=== PATIENT | female | born 1950 | race Caucasian/White ===

== ENCOUNTER 2020-07-02 11:51 | Emergency (ER) | payer MEDICARE, MEDICAID ==
[~2020-07-02] VITALS: Ht 160 cm; Wt 86.7 kg
[~2020-07-02 11:51] MED LIST: ALPR-624 PO; ASPI-1264 PO; ATEN-169 PO; ATOM10CA PO; DEXL60CA3 PO; DOCU100C40 PO; LAMO25TA94 PO; LEVO112T61 PO; ZET10T PO
[2020-07-02 11:55] VITALS: BP 139/90
--- NOTE | 2020-07-02 15:27 | NUR ---
Second call, not in lobby
== END 2020-07-02 16:08 | disposition left against medical advice (07) ==
LOC: ER 11:52
DX: K62.5 Hemorrhage of anus and rectum (principal); Z53.21 Procedure and treatment not carried out due to patient leaving prior to being seen by health care provider

== ENCOUNTER 2020-09-04 10:12 | Day surgery (SDC) | payer MEDICARE, MEDICAID ==
[~2020-09-04] VITALS: Ht 160 cm; Wt 88.6 kg
[2020-09-04] MEDS ORDERED: fentaNYL/PF 50MCG/1 ML 2ML syringe ONE ×2 (10:17→11:04)
[2020-09-04] MEDS ORDERED: MIDAZolam 1 MG/ML 5ML VIAL ONE (10:17)
[2020-09-04 10:31] VITALS: BP 152/109
[2020-09-04] MEDS ORDERED: CLON-528 PO (10:40)
[2020-09-04 11:29] VITALS: BP 131/131
[2020-09-04 11:39] VITALS: BP 127/47
[2020-09-04 11:49] VITALS: BP 126/77
[2020-09-04 11:58] VITALS: BP 138/59
== END 2020-09-04 11:59 | disposition home or self-care (01) ==
LOC: GI LAB 10:12
PROVIDERS: ATTEND Internal Medicine Gastroenterology
DX: K92.1 Melena (principal); K63.89 Other specified diseases of intestine; I10 Essential (primary) hypertension; Z87.891 Personal history of nicotine dependence; E66.9 Obesity, unspecified; Z68.34 Body mass index [BMI] 34.0-34.9, adult; Z88.5 Allergy status to narcotic agent; Z88.8 Allergy status to other drugs, medicaments and biological substances; Z79.899 Other long term (current) drug therapy
CPT/HCPCS: 45378; 99153; G0500; J2250; J3010; J7040; 99152; A4620